=== PATIENT | male | born 1990 | race Caucasian/White ===

== ENCOUNTER 2022-12-04 09:44 | Outpatient (OUT) | payer BC, SELFPAY ==
[2022-12-04 10:14] LABS: Basophils Absolute Auto 0.2 10^3/uL (0.0-0.1); Basophils Percent Auto 2.3 % (0.2-2.0); Eosinophils Absolute Auto 0.7 10^3/uL (0.0-0.7); Hematocrit 46.7 % (42.0-54.0); Immature Granulocytes Abs Auto 0.02 10^3/uL (0.00-0.03); Immature Granulocytes Pct Auto 0.2 % (0.0-0.5); Lymphocytes Absolute Auto 2.9 10^3/uL (1.2-3.8); Lymphocytes Percent Auto 35.2 % (20.5-60.0); Mean Corpuscular HGB Conc 32.1 g/dL (29.9-35.2); Mean Corpuscular Hemoglobin 26.9 pg (25.9-34.0); Mean Corpuscular Volume 83.8 fL (80.0-94.0); Mean Platelet Volume 10.6 fL (9.5-13.5); Monocytes Absolute Auto 0.5 10^3/uL (0.3-0.8); Monocytes Percent Auto 6.2 % (1.7-12.0); Neutrophils Absolute Auto 3.9 10^3/uL (1.4-6.5); Neutrophils Percent Auto 47.1 % (43.0-75.0); Platelet Count 228 10^3/uL (150-450); Red Blood Count 5.57 10^6/uL (4.70-6.10); Red Cell Distribution Width 13.7 % (11.0-15.0); White Blood Count 8.2 10^3/uL (4.0-11.0)
[2022-12-04 10:25] LABS: Estimated Average Glucose 120 mg/dL; Glycohemoglobin A1C 5.8 % (4.5-6.2)
[2022-12-04 10:52] LABS: Alanine Aminotransferase 82 U/L (16-63); Albumin Globulin Ratio 1.1; Albumin Level 3.9 g/dL (3.4-5.0); Alkaline Phosphatase 72 U/L (46-116); Anion Gap 12.5; Aspartate Amino Transferase 31 U/L (15-37); BUN Creatinine Ratio 13.8; Bilirubin Total 0.4 mg/dL (0.2-1.0); Calcium 9.2 mg/dL (8.5-10.1); Carbon Dioxide 27.9 mmol/L (21.0-32.0); Chloride 102 mmol/L (98-107); Chol HDL Ratio 4.9; Cholesterol 209 mg/dL (<=200); Estimated GFR (African America >60 (>=60); Estimated GFR (Non-African Ame >60 (>=60); Free T3 2.98 pg/mL (2.18-3.98); Globulin 3.5 g/dL; Glucose 99 mg/dL (74-106); HDL Cholesterol 43 mg/dL (40-60); Potassium 4.4 mmol/L (3.5-5.1); Sodium 138 mmol/L (136-145); Thyroid Stimulating Hormone 1.324 uIU/mL (0.358-3.740); Total Protein 7.4 g/dL (6.4-8.2); Triglycerides 145 mg/dL (<=150)
[2022-12-05 10:08] LABS: Insulin 10.3 uIU/mL (2.6-24.9)
== END 2022-12-04 09:45 | disposition home or self-care (01) ==
LOC: LAB 09:49
PROVIDERS: PCP Family Medicine; Visit Provider Family Medicine
DX: Z00.00 Encounter for general adult medical examination without abnormal findings (principal)
CPT/HCPCS: 36415; 80053; 80061; 83036; 83525; 84436; 84443; 84481; 85025

== ENCOUNTER 2023-11-06 11:33 | Outpatient (OUT) | payer BC, SELFPAY ==
[2023-11-06 12:12] LABS: Basophils Absolute Auto 0.2 10^3/uL (0.0-0.1); Basophils Percent Auto 2.5 % (0.2-2.0); Eosinophils Absolute Auto 0.5 10^3/uL (0.0-0.7); Eosinophils Percent Auto 6.5 % (0.9-7.0); Hematocrit 47.7 % (42.0-54.0); Hemoglobin 15.8 g/dL (14.0-18.0); Immature Granulocytes Abs Auto 0.02 10^3/uL (0.00-0.03); Immature Granulocytes Pct Auto 0.2 % (0.0-0.5); Lymphocytes Absolute Auto 3.1 10^3/uL (1.2-3.8); Lymphocytes Percent Auto 38.4 % (20.5-60.0); Mean Corpuscular HGB Conc 33.1 g/dL (29.9-35.2); Mean Corpuscular Hemoglobin 27.1 pg (25.9-34.0); Mean Corpuscular Volume 81.8 fL (80.0-94.0); Mean Platelet Volume 10.7 fL (9.5-13.5); Monocytes Absolute Auto 0.6 10^3/uL (0.3-0.8); Monocytes Percent Auto 6.8 % (1.7-12.0); Neutrophils Absolute Auto 3.7 10^3/uL (1.4-6.5); Neutrophils Percent Auto 45.6 % (43.0-75.0); Platelet Count 252 10^3/uL (150-450); Red Blood Count 5.83 10^6/uL (4.70-6.10); Red Cell Distribution Width 13.6 % (11.0-15.0); White Blood Count 8.1 10^3/uL (4.0-11.0)
[2023-11-06 12:26] LABS: Estimated Average Glucose 123 mg/dL; Glycohemoglobin A1C 5.9 % (4.5-6.2)
[2023-11-06 13:04] LABS: Alanine Aminotransferase 87 U/L (16-63); Albumin Globulin Ratio 1.2; Alkaline Phosphatase 68 U/L (46-116); Anion Gap 12.2; Aspartate Amino Transferase 35 U/L (15-37); BUN Creatinine Ratio 12.7; Bilirubin Total 0.5 mg/dL (0.2-1.0); Calcium 9.3 mg/dL (8.5-10.1); Carbon Dioxide 28.1 mmol/L (21.0-32.0); Chloride 103 mmol/L (98-107); Chol HDL Ratio 4.8; Cholesterol 188 mg/dL (<=200); Estimated GFR (African America >60 (>=60); Estimated GFR (Non-African Ame >60 (>=60); Free T3 3.19 pg/mL (2.18-3.98); Globulin 3.3 g/dL; Glucose 106 mg/dL (74-106); HDL Cholesterol 39 mg/dL (40-60); Potassium 4.3 mmol/L (3.5-5.1); Sodium 139 mmol/L (136-145); Thyroid Stimulating Hormone 1.353 uIU/mL (0.358-3.740); Total Protein 7.3 g/dL (6.4-8.2); Triglycerides 230 mg/dL (<=150)
[2023-11-07 09:13] LABS: Insulin 13.9 uIU/mL (2.6-24.9)
== END 2023-11-06 11:34 | disposition home or self-care (01) ==
LOC: LAB 11:34
PROVIDERS: PCP Family Medicine; Visit Provider Family Medicine
DX: Z00.00 Encounter for general adult medical examination without abnormal findings (principal)
CPT/HCPCS: 36415; 80053; 80061; 83036; 83525; 84436; 84443; 84481; 85025

== ENCOUNTER 2024-11-05 13:59 | Outpatient (OUT) | payer BC, SELFPAY ==
--- NOTE | 2024-11-05 14:12 | XR_ITS ---
[facility] [place] [id number] Patient Name: CANDELARIA GOMEZ MRN: [id number] date: 1990 Sex: M Assigned Patient Location: RAD Current Patient Location: [facility] Accession/Order Number: [id number] Exam Date: 11/05/2024 14:15 Report Date: 11/05/2024 15:02 At the request of: SUSHANT MATT MD Procedure: XR cervical spine 2-3V CERVICAL SPINE 3 views: CLINICAL HISTORY: Cervical Radiculopathy COMPARISON: None FINDINGS: Vertebral body and disc space heights appear maintained. Facet joints appear unremarkable. No prevertebral soft tissue swelling. XR/XR cervical spine 2-3V IMPRESSION: NO ACUTE BONY PROCESS. Impression dictated by: Tejas Friend Jr., D.O. 11/05/2024 3:02 PM Dictation Location: [place] [address] Electronically authenticated by: [id number] Y Date: 11/05/2024 15:02
--- OUTSIDE RECORDS SUMMARY | 2024-11-05 14:14 | XMS_ITS | CCD ---
Author Organization [facility] Care Team Providers Care Cant Gang Sawyer Name Role Phone MARY REDDY Consulting Unavailable MARY REDDY Attending Unavailable DR SUSHANT MATT Primary Care Unavailable MARY REDDY Admitting Unavailable MARIVEL THAKKAR Consulting Unavailable MD Sushant Matt Primary Care Provider [phone] Melvin Walker Attending Provider Sushant Matt Primary Care Unavailable Melvin aWlker Attending Unavailable Melvin Walker Admitting Unavailable Problems Problem Classification Problem Date Documented Da te Episodic/Chronic Abdominal pain (4 sources) Left lower quadrant pain; Translations: [LEFT LOWER QUADRANT PAIN] Onset: 2 Episodic Gastrointestinal hemorrhage (1 source) Gastrointestinal hemorrhage, unspecified; Translations: [GASTROINTESTINAL HEMORRHAGE UNS] Onset: 2 Episodic Substance-related disorders (1 source) Nicotine dependence, cigarettes, uncomplicated; Translations: [NICOTINE DEPEND CIGARETTES UNCOMP] Onset: 2 Chronic Unclassified (1 source) Encounter for fertility testing; Translations: [Encounter for fertility testing] Onset: 2 Results Test Name Value Interpretation Reference Range Facility No Panel InformationOrdered By: Melvin Walker on 02-01-2022 Semen Analysis Comment . [facility] Comment on above: No Abnormal specimen characteristics noted. Semen Appearance Normal Normal [facility] Semen pH 8.0 7.2-10 [facility] Semen Round Cell Concentration Moderate [facility] Semen WBC Concentration <1.0 M/mL <0.9 [facility] Sperm % Non-Motile 42 % [facility] Sperm Motility Total 58.0 % >40 [facility] Qualitative semen viscosityO rdered By: Melvin Walker on 02-01-2022 Viscosity Ql (Keira) Normal Normal [facility] Semen Analysis, Fertilityon 12-08-2022 Debris/Round Cells Moderate Normal [facility] Comment on above: Order Comment: Metho d of Collection:: Masturbation Has the patient had a vasectomy?: N Type of Specimen Container:: Sterile Container Abstinence Period:: 5 DAYS Kept at body temperature?: Y Any Collection or Transport Problems?: NO Performed By: #### S EMCOMP #### [facility] [address] [place] [address] [place] Immotile Sperm 42 % Normal [facility] Comment on above: Order Comment: Metho d of Collection:: Masturbation Has the patient had a vasectomy?: N Type of Specimen Container:: Sterile Container Abstinence Period:: 5 DAYS Kept at body temperature?: Y Any Collection or Transport Problems?: NO Performed By: #### S EMCOMP #### [facility] [address] [place] [address] [place] Non-Progression Sperm Motili 20 % Normal [facility] Comment on above: Order Comment: Metho d of Collection:: Masturbation Has the patient had a vasectomy?: N Type of Specimen Container:: Sterile Container Abstinence Period:: 5 DAYS Kept at body temperature?: Y Any Collection or Transport Problems?: NO Performed By: #### S EMCOMP #### [place] [address] [place] Normal Sperm Morphology 6.0 % Normal >=4.0 [facility] Comment on above: Order Comment: Metho d of Collection:: Masturbation Has the patient had a vasectomy?: N Type of Specimen Container:: Sterile Container Abstinence Period:: 5 DAYS Kept at body temperature?: Y Any Collection or Transport Problems?: NO Performed By: #### S EMCOMP #### [facility] [address] [place] [address] [place] Rapid Progression Sperm Motili 38 % Normal [facility] Comment on above: Order Comment: Metho d of Collection:: Masturbation Has the patient had a vasectomy?: N Type of Specimen Container:: Sterile Container Abstinence Period:: 5 DAYS Kept at body temperature?: Y Any Collection or Transport Problems?: NO Performed By: #### S EMCOMP #### [facility] [address] Semen Appearance Normal Normal Normal [facility] Comment on above: Order Comment: Metho d of Collection:: Masturbation Has the patient had a vasectomy?: N Type of Specimen Container:: Sterile Container Abstinence Period:: 5 DAYS Kept at body temperature?: Y Any Collection or Transport Problems?: NO Performed By: #### S EMCOMP #### [facility] [address] [place] [address] Semen Comment . Normal [facility] Comment on above: Order Comment: Metho d of Collection:: Masturbation Has the patient had a vasectomy?: N Type of Specimen Container:: Sterile Container Abstinence Period:: 5 DAYS Kept at body temperature?: Y Any Collection or Transport Problems?: NO Result Comment: No A bnormal specimen characteristics noted. PERFORMED BY: [place] [address] PATHOLOGIST REELING MACHINE OPERATOR SHAWNA DE LA ROSA M.D. Performed By: #### S EMCOMP #### [address] Semen Liquefaction Normal Normal <=60 min [facility] Comment on above: Order Comment: Metho d of Collection:: Masturbation Has the patient had a vasectomy?: N Type of Specimen Container:: Sterile Container Abstinence Period:: 5 DAYS Kept at body temperature?: Y Any Collection or Transport Problems?: NO Performed By: #### S EMCOMP #### [address] Semen pH 8.0 Normal >=7.2 [facility] Comment on above: Order Comment: Metho d of Collection:: Masturbation Has the patient had a vasectomy?: N Type of Specimen Container:: Sterile Container Abstinence Period:: 5 DAYS Kept at body temperature?: Y Any Collection or Transport Problems?: NO Performed By: #### S EMCOMP #### [facility] [address] [place] [address] Semen Viscosity Normal Normal Normal [facility] Comment on above: Order Comment: Metho d of Collection:: Masturbation Has the patient had a vasectomy?: N Type of Specimen Container:: Sterile Container Abstinence Period:: 5 DAYS Kept at body temperature?: Y Any Collection or Transport Problems?: NO Performed By: #### S EMCOMP #### [facility] [address] Semen Volume 3.0 mL Normal >=1.5 [facility] Comment on above: Order Comment: Metho d of Collection:: Masturbation Has the patient had a vasectomy?: N Type of Specimen Container:: Sterile Container Abstinence Period:: 5 DAYS Kept at body temperature?: Y Any Collection or Transport Problems?: NO Performed By: #### S EMCOMP #### [address] Sperm Concentration 14.6 Low >=15 [facility] Comment on above: Order Comment: Metho d of Collection:: Masturbation Has the patient had a vasectomy?: N Type of Specimen Container:: Sterile Container Abstinence Period:: 5 DAYS Kept at body temperature?: Y Any Collection or Transport Problems?: NO Performed By: #### S EMCOMP #### [address] Total Motility ([place]) 58.0 % Normal >=40 ([place]) [facility] Comment on above: Order Comment: Metho d of Collection:: Masturbation Has the patient had a vasectomy?: N Type of Specimen Container:: Sterile Container Abstinence Period:: 5 DAYS Kept at body temperature?: Y Any Collection or Transport Problems?: NO Performed By: #### S EMCOMP #### [facility] [address] [place] [address] [place] WBC Concent, Semen <1.0 Normal <1.0 [facility] Comment on above: Order Comment: Metho d of Collection:: Masturbation Has the patient had a vasectomy?: N Type of Specimen Container:: Sterile Container Abstinence Period:: 5 DAYS Kept at body temperature?: Y Any Collection or Transport Problems?: NO Performed By: #### S EMCOMP #### [facility] [address] Semen liquefaction time maria esther urementOrdered By: Melvin Walker on 02-01-2022 Liquefaction (Keira) [Time] Normal <=60 min [facility] Semen volumeOrdered By: Ratna Walker on 02-01-2022 Specimen volume (Keira) 3.0 mL >1.5 [facility] Sperm countOrdered By: Melvin Walker on 02-01-2022 Spermatozoa (Keira) [#/Vol] 14.6 M/mL >15 [facility] Sperm morphologyOrdered By: Melvin Walker on 02-01-2022 Spermatozoa Nom (Keira) 6.0 % >4.0 [facility] CT ABD/PELV W CONon 09-17-19 CT ABD/PELV W CON EXAM: CT ABD/PELV W CON 09/15/2021 8:45 PM EDT OH001 CLINICAL STATEMENT: UNSPECIFIED ABDOMINAL PAIN COMPARISON: No prior studies are available at the time of dictation. TECHNIQUE: Helically acquired images were obtained of the abdomen and pelvis following 100 cc of Omnipaque 300 IV contrast. Oral contrast was administered. AEC is utilized. 2-D reconstructed images are provided. FINDINGS: Contracted gallbladder. The upper abdominal solid organs are unremarkable. There is no bowel obstruction or free air. There is no ascites. There is no evidence of aortic aneurysm or dissection. The celiac artery, superior mesenteric artery, and superior mesenteric vein are grossly patent. There is no retroperitoneal adenopathy. There is no appendicitis or diverticulitis. There are no pelvic masses or loculated fluid collections. The lung bases are clear. There are no destructive bone lesions identified. IMPRESSION: No acute abnormality. FOLLOW-UP: Follow-up as clinically indicated. Electronically authenticated by: MARIVEL SAID Date: 2021-09-15 23:36 Normal [facility] CBC AUTO DIFFon 09-15-2021 BASO # 0.2 103/ul Critically high 0.0-0.1 [facility] Comment on above: Performed By: #### C BC #### [facility] [address] [address] [address] Tye Agosto Basophils/100 WBC (Bld) 1.9 % Normal 0.2-2.0 [facility] Comment on above: Performed By: #### C BC #### [facility] [address] [place] [address] Dr. Tye Agosto EO # 0.6 103/ul Normal 0.0-0.7 [facility] Comment on above: Performed By: #### C BC #### [facility] [address] [place] [address] Dr. Tye Agosto Eosinophils/100 WBC (Bld) 6.2 % Normal 0.9-7.0 [facility] Comment on above: Performed By: #### C BC #### [facility] [address] [place] [address] Dr. Tye Agosto Erythrocyte distribution width (RBC) [Ratio] 13.2 % Normal 11.0-15.0 [facility] Comment on above: Performed By: #### C BC #### [facility] [address] [place] [address] Dr. Tye Agosto Hematocrit (Bld) [Volume fraction] 44.7 % Normal 42.0-54.0 [facility] Comment on above: Performed By: #### C BC #### [facility] [address] [place] [address] Dr. Tye Agosto Hemoglobin (Bld) [Mass/Vol] 14.8 g/dL Normal 14.0-18.0 [facility] Comment on above: Performed By: #### C BC #### [facility] [address] [place] [address] Dr. Tye Agosto IG # 0.03 10e3/ul Normal 0.00-0.03 [facility] Comment on above: Performed By: #### C BC #### [facility] [address] [place] [address] Dr. Tye Agosto IG % 0.3 % Normal 0.0-0.5 [facility] Comment on above: Performed By: #### C BC #### [facility] [address] [place] [address] Dr. Tye Agosto LYMPH # 3.4 103/ul Normal 1.2-3.8 [facility] Comment on above: Performed By: #### C BC #### [facility] [address] [place] [address] Dr. Tye Agosto Lymphocytes/100 WBC (Bld) 33.5 % Normal 20.5-60.0 [facility] Comment on above: Performed By: #### C BC #### [facility] [address] [place] [address] Dr. Tye Agosto MANUAL DIFF REQ NO Normal [facility] Comment on above: Performed By: #### C BC #### [facility] [address] [place] [address] Dr. Tye Agosto MCH (RBC) [Entitic mass] 27.0 pg Normal 25.9-34.0 [facility] Comment on above: Performed By: #### C BC #### [facility] [address] [place] [address] Dr. Tye Agosto MCHC (RBC) [Mass/Vol] 33.1 g/dL Normal 29.9-35.2 [facility] Comment on above: Performed By: #### C BC #### [facility] [address] [place] [address] Dr. Tye Agosto MCV (RBC) [Entitic vol] 81.4 fL Normal 80.0-94.0 [facility] Comment on above: Performed By: #### C BC #### [facility] [address] [place] [address] Dr. Tye Agosto MONO # 0.6 103/ul Normal 0.3-0.8 [facility] Comment on above: Performed By: #### C BC #### [facility] [address] [place] [address] Dr. Tye Agosto Monocytes/100 WBC (Bld) 5.5 % Normal 1.7-12.0 [facility] Comment on above: Performed By: #### C BC #### [facility] [address] [place] [address] Dr. Tye Agosto NEUT # 5.4 103/ul Normal 1.4-6.5 [facility] Comment on above: Performed By: #### C BC #### [facility] [address] [address] [address] Tye Agosto Neutrophils/100 WBC (Bld) 52.6 % Normal 43.0-75.0 [facility] Comment on above: Performed By: #### C BC #### [facility] [address] [address] [address] Tye Agosto Platelet mean volume (Bld) [Entitic vol] 10.5 fL Normal 9.5-13.5 [facility] Comment on above: Performed By: #### C BC #### [facility] [address] [address] [address] Tye Agosto PLT 233 103/ul Normal 150-450 [facility] Comment on above: Performed By: #### C BC #### [facility] [address] [place] [address] Dr. Tye Agosto RBC 5.49 106/ul Normal 4.70-6.10 [facility] Comment on above: Performed By: #### C BC #### [facility] [address] [place] [address] Dr. Tye Agosto WBC 10.2 103/ul Normal 4.0-11.0 [facility] Comment on above: Performed By: #### C BC #### [facility] [address] [place] [address] Dr. Tye Agosto PROF CHEM 8 (BAS METB)on Anion gap [Moles/Vol] 11.4 mmol/L Normal [facility] Comment on above: Performed By: #### B MP #### [facility] [address] [place] [address] Dr. Tye Agosto Calcium [Mass/Vol] 9.3 mg/dL Normal 8.5-10.1 [facility] Comment on above: Performed By: #### B MP #### [facility] [address] [place] [address] Dr. Tye Agosto Chloride [Moles/Vol] 103 mmol/L Normal 98-107 [facility] Comment on above: Performed By: #### B MP #### [facility] [address] [address] [address] Tye Agosto CO2 [Moles/Vol] 27.1 mmol/L Normal 21.0-32.0 [facility] Comment on above: Performed By: #### B MP #### [facility] [address] [address] [address] Tye Agosto Creatinine [Mass/Vol] 1.25 mg/dL Normal 0.70-1.30 [facility] Comment on above: Performed By: #### B MP #### [facility] [address] [address] [address] Tye Agosto EGFR-AF SYRIAN >60 Normal >=60 [facility] Comment on above: Performed By: #### B MP #### [facility] [address] [place] [address] Dr. Tye Agosto EGFR-NON AF SYRIAN >60 Normal >=60 [facility] Comment on above: Performed By: #### B MP #### [facility] [address] [address] [address] Tye Agosto Glucose [Mass/Vol] 117 mg/dL Critically high 74-106 [facility] Comment on above: Performed By: #### B MP #### [facility] [address] [address] [address] Tye Agosto Potassium [Moles/Vol] 3.5 mmol/L Normal 3.5-5.1 [facility] Comment on above: Performed By: #### B MP #### [facility] [address] [address] [address] Tye Agosto Sodium [Moles/Vol] 138 mmol/L Normal 136-145 [facility] Comment on above: Performed By: #### B MP #### [facility] [address] [place] [address] Dr. Tye Agosto Urea nitrogen [Mass/Vol] 12.0 mg/dL Normal 7.0-18.0 [facility] Comment on above: Performed By: #### B MP #### [facility] [address] [place] [address] Dr. Tye Agosto Urea nitrogen/Creatinine [Mass ratio] 9.6 mg/mg Normal [facility] Comment on above: Performed By: #### B #### [facility] [address] [place], [place] [address] Dr. Tye Agosto Consent Formson 12-09-2020 Consent Forms [id number] #1.00OTGTIFF Normal [facility] Lab - Toxicology Resultson 1 Lab - Toxicology Results [id number] #1.00OTGTIFF [facility] Triage Panel 10on 12-02-2020 Drug Screen Complete Collected Normal [facility] Comment on above: Performed By: #### 2 [id number] #### [facility] (DEFAULT) [address] [place] [address] ED Clinical Summaryon 2020 ED Clinical Summary [facility] ? Urgent Care [address] [place], [place] [id number] Clinical Summary PERSON INFORMATION Name: CANDELARIA SOLIS Age: 30 Years Sex: MALE : 1990 MRN: Acct#: Visit Reason: Medical screening exam; [facility] Arrival: 12/01/2020 14:25:19 Discharge: 12/01/2020 14:58:00 LOS: 000 00:33 Check In: 12/01/2020 14:25:19 Checkout: 12/01/2020 14:58:00 Address: [address] [place] [address] PCP: SUSHANT MATT PROVIDER INFORMATION Provider Role Assigned Unassigned Juan Amador PA-C ED PA 12/01/2020 14:29:42 12/01/2020 14:30:19 Kurt Doll PA-C ED PA 12/01/2020 14:29:53 Janell Crowley ANIMAL NUTRITION CONSULTANT Nurse 12/01/2020 14:33:53 VITALS INFORMATION Vital Sign Triage Latest Temperature Tympanic Temperature Temporal Artery Pulse Rate O2 Sat 96 % 96 % Respiratory Rate Blood Pressure /86 mmHg /86 mmHg MEDICAL INFORMATION Medications Given: Allergy Information: No Known Medication Allergies PHYSICIAN DOCUMENTATION DISCHARGE INFORMATION: Discharge Disposition: Home Discharge Location: Home PATIENT EDUCATION INFORMATION Instructions: Follow-Up: DIAGNOSIS: Patient Understands: Yes - Patient/family/careg iver verbalizes understanding of instructions given Comment: Normal [facility] ED Patient Summaryon 021 ED Patient Summary [facility] ? Urgent Care [address] [place] [address] PATIENT DISCHARGE INSTRUCTIONS Patient Information Name: CANDELARIA SOLIS Age: 30 Years Date of : 1990 Reason For Visit: Medical screening exam; [facility] Arrival Time: 12/01/2020 14:25:19 Primary Care Physician: SUSHANT MATT Attending Physician: Kurt Doll PA-C Comment: Patient Education Medication Information: The exam and treatment you received today in the [facility] Emergency Department were for an urgent problem and are not intended as complete care. It is important for you to follow up with a doctor, nurse practitioner, or physician?s hospital administrative assistant for ongoing care. If your symptoms become worse or you do not improve as expected and you are unable to reach your usual health care provider, you should return to the Emergency Department, we are available 24 hours a day. For those patients who have received Radiology results, the interpretation of your X-ray as given to you by our Emergency Department physician is only a preliminary report. The Radiologist will review your films and if there is a change in the diagnosis you will be notified by phone. Please make sure you have provided a working phone number so we can reach you if necessary. In the event that you had a lab culture while you were a patient in the Emergency Department, you will be notified by phone if there is a need to change your antibiotic. Please make sure you have provided a working phone number so we can reach you if necessary. [facility] Emergency Department has provided you with a complete list of medications post discharge. Please inform your swing manager/provider of your visit and for further instruction on these medications. Any specific questions regarding your chronic medications and dosages should be discussed with your primary care physician(s) and/or pharmacist. Visit Information Visit Diagnosis: Diagnoses This Visit Medical screening exam ([id number]) If you received any narcotics, sedation, or any other medication that causes drowsiness for the next 24 hours, unless otherwise directed: ? Do not drive a car. ? Do not operate machinery such as power tools, lawn mowers, drills, sewing machines, or stoves ? Avoid alcoholic beverages and drugs for allergies, nerves, or sleep ? Do not make important personal or business decisions or sign any legal documents Reason for Visit: [employer] new hire physical Allergies: Substance Reaction Symptoms Type Comments No Known Medication Allergies Drug Vital Signs: Vitals and Measurements this Visit (last charted value for your 12/01/2020 visit) Vital Signs This Visit Temperature Oral: 37 DegC Peripheral Pulse Rate: 72 bpm Respiratory Rate: 16 br/min Systolic Blood Pressure: 124 mmHg Diastolic Blood Pressure: 86 mmHg SpO2: 96 % Oxygen Therapy: Room air Measurements This Visit Height: 175.26 cm Weight: 96.80 kg Body Mass Index: 31.51 kg/m2 Problems List: Problem Onset Comments No Problems found Major Tests and Procedures: The following procedures and tests were performed during your ED visit. Laboratory Radiology Cardiology Viruses or Bacteria What?s got you sick? Antibiotics only treat bacterial infections. Viral illnesses cannot be treated with antibiotics. When an antibiotic is not prescribed, ask your healthcare professional for tips on how to relieve symptoms and feel better. Usual Cause Illness Viruses Bacteria Antibiotic Needed Cold/Runny Nose NO Bronchitis/Chest Cold (in otherwise healthy children and adults) NO Whooping Cough Yes Flu NO Strep Throat Yes Sore Throat (except strep) NO Fluid in the middle ear (otitis media with effusion) NO Urinary Tract Infection Yes Antibiotics Aren?t Always the Answer www.cdc.gov/getsmart GET SMART Know When Antibiotics Work [place] Department of Health and Human Services Centers for Disease Control and Prevention October 2013 [facility] Urgent Care Note- Provideron 12-01-2020 Urgent Care Note- Provider Patient: CANDELARIA SOLIS Age: 30 years Sex: MALE : 1990 Associated Diagnoses: None Author: Kurt Doll PA-C History of Present Illness Patient presents for a pre-employment physical. He is cleared for work. Exam is normal. See scanned document. Health Status Allergies: No active allergies have been recorded.. Past Medical/ Family/ Social History Medical history: No active or resolved past medical history items have been selected or recorded.. Surgical history: No active procedure history items have been selected or recorded.. Family history: No family history items have been selected or recorded.. Social history: Social & Psychosocial Habits No Data Available . Problem list: No qualifying data available . Normal [facility] [address] 021 Urgent Care Record [facility] ? Urgent Care [address] [place] [address] PATIENT DISCHARGE INSTRUCTIONS Patient Information Name: CANDELARIA SOLIS Age: 30 Years Date of : 1990 Reason For Visit: Medical screening exam; [employer] PHYSICAL Arrival Time: 12/01/2020 14:25:19 Primary Care Physician: SUSHANT MATT Attending Physician: Kurt Doll PA-C Comment: Visit Diagnosis: Diagnoses This Visit Medical screening exam ([id number]) If you received any narcotics, sedation, or any other medication that causes drowsiness for the next 24 hours, unless otherwise directed: ? Do not drive a car. ? Do not operate machinery such as power tools, lawn mowers, drills, sewing machines, or stoves ? Avoid alcoholic beverages and drugs for allergies, nerves, or sleep ? Do not make important personal or business decisions or sign any legal documents Medication Information: The exam and treatment you received today in the [facility] Care were for an urgent problem and are not intended as complete care. It is important for you to follow up with a doctor, nurse practitioner, or physician?s hospital administrative assistant for ongoing care. If your symptoms become worse or you do not improve as expected and you are unable to reach your usual health care provider, you should return to the Emergency Department, we are available 24 hours a day. For those patients who have received Radiology results, the interpretation of your X-ray as given to you by our Urgent Care physician is only a preliminary report. The Radiologist will review your films and if there is a change in the diagnosis you will be notified by phone. Please make sure you have provided a working phone number so we can reach you if necessary. In the event that you had a lab culture while you were a patient in the Urgent Care, you will be notified by phone if there is a need to change your antibiotic. Please make sure you have provided a working phone number so we can reach you if necessary. [facility] has provided you with a complete list of medications post discharge. Please inform your swing manager/provider of your visit and for further instruction on these medications. Any specific questions regarding your chronic medications and dosages should be discussed with your primary care physician(s) and/or pharmacist. Visit Information Allergies: Substance Reaction Symptoms Type Comments No Known Medication Allergies Drug Vital Signs: Vitals and Measurements this Visit (last charted value for your 12/01/2020 visit) Vital Signs This Visit Temperature Oral: 37 DegC Peripheral Pulse Rate: 72 bpm Respiratory Rate: 16 br/min Systolic Blood Pressure: 124 mmHg Diastolic Blood Pressure: 86 mmHg SpO2: 96 % Oxygen Therapy: Room air Measurements This Visit Height: 175.26 cm Weight: 96.80 kg Body Mass Index: 31.51 kg/m2 Problems List: Problem Onset Comments No Problems found Patient Education Viruses or Bacteria What?s got you sick? Antibiotics only treat bacterial infections. Viral illnesses cannot be treated with antibiotics. When an antibiotic is not prescribed, ask your healthcare professional for tips on how to relieve symptoms and feel better. Usual Cause Illness Viruses Bacteria Antibiotic Needed Cold/Runny Nose NO Bronchitis/Chest Cold (in otherwise healthy children and adults) NO Whooping Cough Yes Flu NO Strep Throat Yes Sore Throat (except strep) NO Fluid in the middle ear (otitis media with effusion) NO Urinary Tract Infection Yes Antibiotics Aren?t Always the Answer www.cdc.gov/getsmart GET SMART Know When Antibiotics Work [place] Department of Health and Human Services Centers for Disease Control and Prevention October 2013 Normal [facility] Encounters Encounter Date Encounter Type Care Provider Facility Start: 02-01-2022 End: 02-01-2022 ambulatory Sushant Matt Facility:[facility] [place] Start: 02-01-2022 End: 02-01-2022 ambulatory MD Sushant Matt Work Phone: [facility] Work Phone: Start: 02-01-2022 End: 02-01-2022 Patient encounter procedure MD Sushant Matt Work Phone: [facility] [place] Start: 09-15-2021 End: 09-16-2021 ambulatory MARY REDDY Facility:[facility] Payers Date Payer Category Payer Self-pay 1990 Unknown [id number] 1960 Unknown [id number] Unknown [id number] Social History Date Type Detail Facility Tobacco smoking stat [facility] Unknown if ever smoked [facility] Work Phone: Start: 1990 Sex Assigned At Male F [facility] Clinical Note 02-01-2022 Note Date & Type Note Facility 02-01-2022 Note [facility] Sperm Rapid Progressive February 01, 2022 10:11am 38 % Clinical Note 02-01-2022 Note Date & Type Note Facility 02-01-2022 Note [facility] [place] Sperm Non-Progressive February 01, 2022 10:11am 20 % History and physical note 12-09-2020 Note Date & Type Note Facility 12-09-2020 Note [id number] [facility] Clinical Note 12-01-2020 Note Date & Type Note Facility 12-01-2020 Note Patient Education Materials Foll ows: [facility] Evaluation note Note Date & Type Note Facility Evaluation note No assessment information availa ble [facility] Work Phone: Summary Purpose Family History No Family History Records FoundNo Family History Records FoundNo Family History Records Found Advance Directives No Advanced Directives Records Found Advance Directive Response Recorded Date/ Time Advance Directives No December 07, 2021 2:43pm Chief Complaint and Reason for Visit Chief Complaint Fertility Additional Source Comments (unrecognized sect ion and content) No Status Records FoundNo Status Records FoundNo Status Records Found INFORMATION SOURCE (unrecogn ized section and content) DATE CREATED AUTHOR 12/10/2020 [facility] DATE CREATED AUTHOR AUTHOR'S ORGANIZ ATION 09/22/2021 [facility] DATE CREATED AUTHOR AUTHOR'S ORGANIZ ATION 02/17/2022 [facility] Care Teams (unrecognized sec tion and content) Team Status: Inactive Member Role Status Dates Sushant Matt MD Primary Care Provider Active Melvin Walker Attending Provider Active Team Status: Active Member Role Status Dates Sushant Matt MD Primary Care Provider Active Goals (unrecognized section and content) Goals may be documented in a n alternate section FOR RECORDS PERTAINING TO PATIENTS WHO ARE OR HAVE BEEN ENROLLED IN A CHEMICAL DEPENDENCY/SUBSTANCEABUSE PROGRAM, SOME INFORMATION MAY BE OMITTED. This clinical summary was aggregated from multiple sources. Caution should be exercised in using it in the provision of clinical care. This summary normalizes information from multiple sources, and as a consequence, information in this document may materially change the coding, format and clinical context of patient data. In addition, data may be omitted in some cases. CLINICAL DECISIONS SHOULD BE BASED ON THE PRIMARY CLINICAL RECORDS. [facility] [place]. [email or web address] [facility]. provides no warranty or guarantee of the accuracy or completeness of information in this document.
== END 2024-11-05 14:00 | disposition home or self-care (01) ==
LOC: RAD 14:01
PROVIDERS: PCP Family Medicine; Visit Provider Family Medicine
DX: M54.12 Radiculopathy, cervical region (principal)
CPT/HCPCS: 72040

== ENCOUNTER 2024-11-07 06:50 | Outpatient (OUT) | payer BC, SELFPAY ==
--- OUTSIDE RECORDS SUMMARY | 2024-11-07 06:53 | XMS_ITS | CCD ---
Author Organization [facility] Care Team Providers Care Marine Painter Name Role Phone MARY REDDY Consulting Unavailable MARY REDDY Attending Unavailable DR SUSHANT MATT Primary Care Unavailable MARY REDDY Admitting Unavailable MARIVEL THAKKAR Consulting Unavailable MD Sushant Matt Primary Care Provider Melvin Walker Attending Provider Sushant Matt Primary Care Unavailable Melvin Walker Attending Unavailable Melvin Walker Admitting Unavailable Problems [...] Walker on 02-01-2022 Semen Analysis Comment . [facility] Comment on above: No Abnormal specimen characteristics noted. Semen Appearance Normal Normal [facility] Semen pH 8.0 7.2-10 Semen Round Cell Concentration Moderate Semen WBC Concentration <1.0 M/mL <0.9 F [facility] Sperm % Non-Motile 42 % [facility] Sperm Motility Total 58.0 % >40 [facility] Qualitative semen viscosityO rdered By: Melvin Walker on 02-01-2022 Viscosity Ql (Keira) Normal Normal [facility] Semen Analysis, Fertilityon 12-08-2022 Debris/Round Cells Moderate Normal [facility] Comment on above: Order Comment: Metho d of Collection:: Masturbation Has the patient had a vasectomy?: N Type of Specimen Container:: Sterile Container Abstinence Period:: 5 DAYS Kept at body temperature?: Y Any Collection or Transport Problems?: NO Performed By: #### S EMCOMP #### [facility] [address] [place] [address] [place] Immotile Sperm 42 % Normal Comment on above: Order Comment: Metho d of Collection:: Masturbation Has the patient had a vasectomy?: N Type of Specimen Container:: Sterile Container Abstinence Period:: 5 DAYS Kept at body temperature?: Y Any Collection or Transport Problems?: NO Performed By: #### S EMCOMP #### [facility] [address] [place] [address] [place] Non-Progression Sperm Motili 20 % Normal Comment on above: Order Comment: Metho d of Collection:: Masturbation Has the patient had a vasectomy?: N Type of Specimen Container:: Sterile Container Abstinence Period:: 5 DAYS Kept at body temperature?: Y Any Collection or Transport Problems?: NO Performed By: #### S EMCOMP #### [place] [address] [place] Normal Sperm Morphology 6.0 % Normal >=4.0 F [facility] Comment on above: Order Comment: Metho d of Collection:: Masturbation Has the patient had a vasectomy?: N Type of Specimen Container:: Sterile Container Abstinence Period:: 5 DAYS Kept at body temperature?: Y Any Collection or Transport Problems?: NO Performed By: #### S EMCOMP #### [facility] [address] [place] [address] [place] Rapid Progression Sperm Motili 38 % Normal Comment on above: Order Comment: Metho d of Collection:: Masturbation Has the patient had a vasectomy?: N Type of Specimen Container:: Sterile Container Abstinence Period:: 5 DAYS Kept at body temperature?: Y Any Collection or Transport Problems?: NO Performed By: #### S EMCOMP #### [facility] [address] Semen Appearance Normal Normal Normal [facility] Comment on above: Order Comment: Metho d of Collection:: Masturbation Has the patient had a vasectomy?: N Type of Specimen Container:: Sterile Container Abstinence Period:: 5 DAYS Kept at body temperature?: Y Any Collection or Transport Problems?: NO Performed By: #### S EMCOMP #### [facility] [address] [place] [address] Semen Comment . Normal Comment on above: Order Comment: Metho d of Collection:: Masturbation Has the patient had a vasectomy?: N Type of Specimen Container:: Sterile Container Abstinence Period:: 5 DAYS Kept at body temperature?: Y Any Collection or Transport Problems?: NO Result Comment: No A bnormal specimen characteristics noted. PERFORMED BY: [place] [address] PATHOLOGIST ACT TUTOR SHAWNA DE LA ROSA M.D. Performed By: #### S EMCOMP #### [address] Semen Liquefaction Normal Normal <=60 min [facility] Comment on above: Order Comment: Metho d of Collection:: Masturbation Has the patient had a vasectomy?: N Type of Specimen Container:: Sterile Container Abstinence Period:: 5 DAYS Kept at body temperature?: Y Any Collection or Transport Problems?: NO Performed By: #### S EMCOMP #### [address] Semen pH 8.0 Normal >=7.2 Comment on above: Order Comment: Metho d of Collection:: Masturbation Has the patient had a vasectomy?: N Type of Specimen Container:: Sterile Container Abstinence Period:: 5 DAYS Kept at body temperature?: Y Any Collection or Transport Problems?: NO Performed By: #### S EMCOMP #### [facility] [address] [place] [address] Semen Viscosity Normal Normal Normal Comment on above: Order Comment: Metho d of Collection:: Masturbation Has the patient had a vasectomy?: N Type of Specimen Container:: Sterile Container Abstinence Period:: 5 DAYS Kept at body temperature?: Y Any Collection or Transport Problems?: NO Performed By: #### S EMCOMP #### [facility] [address] Semen Volume 3.0 mL Normal >=1.5 Comment on above: Order Comment: Metho d of Collection:: Masturbation Has the patient had a vasectomy?: N Type of Specimen Container:: Sterile Container Abstinence Period:: 5 DAYS Kept at body temperature?: Y Any Collection or Transport Problems?: NO Performed By: #### S EMCOMP #### [address] Sperm Concentration 14.6 Low >=15 [facility] Comment on above: Order Comment: Metho d of Collection:: Masturbation Has the patient had a vasectomy?: N Type of Specimen Container:: Sterile Container Abstinence Period:: 5 DAYS Kept at body temperature?: Y Any Collection or Transport Problems?: NO Performed By: #### S EMCOMP #### [address] Total Motility (OK+COMMODITY SUPERVISOR) 58.0 % Normal >=40 (OK+COMMODITY SUPERVISOR) Comment on above: Order Comment: Metho d of Collection:: Masturbation Has the patient had a vasectomy?: N Type of Specimen Container:: Sterile Container Abstinence Period:: 5 DAYS Kept at body temperature?: Y Any Collection or Transport Problems?: NO Performed By: #### S EMCOMP #### [facility] [address] [place] [address] [place] WBC Concent, Semen <1.0 Normal <1.0 [facility] Comment on above: Order Comment: Metho d of Collection:: Masturbation Has the patient had a vasectomy?: N Type of Specimen Container:: Sterile Container Abstinence Period:: 5 DAYS Kept at body temperature?: Y Any Collection or Transport Problems?: NO Performed By: #### S EMCOMP #### [facility] [address] Semen liquefaction time maria esther urementOrdered By: Melvin Walker on 02-01-2022 Liquefaction (Keira) [Time] Normal <=60 min Semen volumeOrdered By: Ratna Walker on 02-01-2022 Specimen volume (Keira) 3.0 mL >1.5 [facility] Sperm countOrdered By: Melvin Walker on 02-01-2022 Spermatozoa (Keira) [#/Vol] 14.6 M/mL >15 Sperm morphologyOrdered By: Melvin Walker on 02-01-2022 Spermatozoa Nom (Keira) 6.0 % >4.0 [facility] CT ABD/PELV W CONon 09-17-19 [...] MARIVEL SAID Date: 2021-09-15 23:36 Normal [facility] CBC AUTO DIFFon 09-15-2021 BASO # 0.2 103/ul Critically high 0.0-0.1 [facility] Comment on above: Performed By: #### C BC #### [facility] [address] [address] [address] Tye Agosto Basophils/100 WBC (Bld) 1.9 % Normal 0.2-2.0 [facility] Comment on above: Performed By: #### C BC #### [facility] [address] [place] [address] Dr. Tye Agosto EO # 0.6 103/ul Normal 0.0-0.7 [facility] Comment on above: Performed By: #### C BC #### [facility] [address] [place] [address] Dr. Tye Agosto Eosinophils/100 WBC (Bld) 6.2 % Normal 0.9-7.0 [facility] Comment on above: Performed By: #### C BC #### [facility] [address] [place] [address] Dr. Tye Agosto Erythrocyte distribution width (RBC) [Ratio] 13.2 % Normal 11.0-15.0 [facility] Comment on above: Performed By: #### C BC #### [facility] [address] [place] [address] Dr. Tye Agosto Hematocrit (Bld) [Volume fraction] 44.7 % Normal 42.0-54.0 [facility] Comment on above: Performed By: #### C BC #### [facility] [address] [place] [address] Dr. Tye Agosto Hemoglobin (Bld) [Mass/Vol] 14.8 g/dL Normal 14.0-18.0 [facility] Comment on above: Performed By: #### C BC #### [facility] [address] [place] [address] Dr. Tye Agosto IG # 0.03 10e3/ul Normal 0.00-0.03 [facility] Comment on above: Performed By: #### C BC #### [facility] [address] [place] [address] Dr. Tye Agosto IG % 0.3 % Normal 0.0-0.5 [facility] Comment on above: Performed By: #### C BC #### [facility] [address] [place] [address] Dr. Tye Agosto LYMPH # 3.4 103/ul Normal 1.2-3.8 [facility] Comment on above: Performed By: #### C BC #### [facility] [address] [place] [address] Dr. Tye Agosto Lymphocytes/100 WBC (Bld) 33.5 % Normal 20.5-60.0 [facility] Comment on above: Performed By: #### C BC #### [facility] [address] [place] [address] Dr. Tye Agosto MANUAL DIFF REQ NO Normal [facility] Comment on above: Performed By: #### C BC #### [facility] [address] [place] [address] Dr. Tye Agosto MCH (RBC) [Entitic mass] 27.0 pg Normal 25.9-34.0 [facility] Comment on above: Performed By: #### C BC #### [facility] [address] [place] [address] Dr. Tye Agosto MCHC (RBC) [Mass/Vol] 33.1 g/dL Normal 29.9-35.2 [facility] Comment on above: Performed By: #### C BC #### [facility] [address] [place] [address] Dr. Tye Agosto MCV (RBC) [Entitic vol] 81.4 fL Normal 80.0-94.0 [facility] Comment on above: Performed By: #### C BC #### [facility] [address] [place] [address] Dr. Tye Agosto MONO # 0.6 103/ul Normal 0.3-0.8 [facility] Comment on above: Performed By: #### C BC #### [facility] [address] [place] [address] Dr. Tye Agosto Monocytes/100 WBC (Bld) 5.5 % Normal 1.7-12.0 [facility] Comment on above: Performed By: #### C BC #### [facility] [address] [place] [address] Dr. Tye Agosto NEUT # 5.4 103/ul Normal 1.4-6.5 [facility] Comment on above: Performed By: #### C BC #### [facility] [address] [address] [address] Tye Agosto Neutrophils/100 WBC (Bld) 52.6 % Normal 43.0-75.0 [facility] Comment on above: Performed By: #### C BC #### [facility] [address] [address] [address] Tye Agosto Platelet mean volume (Bld) [Entitic vol] 10.5 fL Normal 9.5-13.5 [facility] Comment on above: Performed By: #### C BC #### [facility] [address] [address] [address] Tye Agosto PLT 233 103/ul Normal 150-450 [facility] Comment on above: Performed By: #### C BC #### [facility] [address] [place] [address] Dr. Tye Agosto RBC 5.49 106/ul Normal 4.70-6.10 [facility] Comment on above: Performed By: #### C BC #### [facility] [address] [place] [address] Dr. Tye Agosto WBC 10.2 103/ul Normal 4.0-11.0 [facility] Comment on above: Performed By: #### C BC #### [facility] [address] [place] [address] Dr. Tye Agosto PROF CHEM 8 (BAS METB)on Anion gap [Moles/Vol] 11.4 mmol/L Normal [facility] Comment on above: Performed By: #### B MP #### [facility] [address] [place] [address] Dr. Tye Agosto Calcium [Mass/Vol] 9.3 mg/dL Normal 8.5-10.1 [facility] Comment on above: Performed By: #### B MP #### [facility] [address] [place] [address] Dr. Tye Agosto Chloride [Moles/Vol] 103 mmol/L Normal 98-107 [facility] Comment on above: Performed By: #### B MP #### [facility] [address] [address] [address] Tye Agosto CO2 [Moles/Vol] 27.1 mmol/L Normal 21.0-32.0 [facility] Comment on above: Performed By: #### B MP #### [facility] [address] [address] [address] Tye Agosto Creatinine [Mass/Vol] 1.25 mg/dL Normal 0.70-1.30 [facility] Comment on above: Performed By: #### B MP #### [facility] [address] [address] [address] Tye Agosto EGFR-AF ITALIAN >60 Normal >=60 [facility] Comment on above: Performed By: #### B MP #### [facility] [address] [place] [address] Dr. Tye Agosto EGFR-NON AF ITALIAN >60 Normal >=60 [facility] Comment on above: Performed By: #### B MP #### [facility] [address] [address] [address] Tye Agosto Glucose [Mass/Vol] 117 mg/dL Critically high 74-106 T [facility] Comment on above: Performed By: #### B MP #### [facility] [address] [address] [address] Tye Agosto Potassium [Moles/Vol] 3.5 mmol/L Normal 3.5-5.1 [facility] Comment on above: Performed By: #### B MP #### [facility] [address] [address] [address] Tye Agosto Sodium [Moles/Vol] 138 mmol/L Normal 136-145 [facility] Comment on above: Performed By: #### B MP #### [facility] [address] [place] [address] Dr. Tye Agosto Urea nitrogen [Mass/Vol] 12.0 mg/dL Normal 7.0-18.0 [facility] Comment on above: Performed By: #### B MP #### [facility] [address] [place] [address] Dr. Tye Agosto Urea nitrogen/Creatinine [Mass ratio] 9.6 mg/mg Normal [facility] Comment on above: Performed By: #### B #### [facility] [address] [place], [place] [address] Dr. Tye Agosto Consent Formson 12-09-2020 Consent Forms [id number] #[id number] Normal [facility] Lab - Toxicology Resultson 1 Lab - Toxicology Results [id number] #1.00OTGTIFF [facility] Triage Panel 10on 12-02-2020 Drug Screen Complete Collected Normal [facility] Comment on above: Performed By: #### 2 [id number] #### [facility] (DEFAULT) [address] [place] [address] ED Clinical Summaryon 2020 ED Clinical Summary [facility] ? Urgent Care [address] [place], [place] [id number] Clinical Summary PERSON INFORMATION Name: CANDELARIA SOLIS Age: 30 Years Sex: MALE : 1990 MRN: Acct#: Visit Reason: Medical screening exam; [facility] Arrival: 12/01/2020 14:25:19 Discharge: 12/01/2020 14:58:00 LOS: 000 00:33 Check In: 12/01/2020 14:25:19 Checkout: 12/01/2020 14:58:00 Address: [address] [place] [address] PCP: SUSHANT MATT PROVIDER INFORMATION Provider Role Assigned Unassigned Juan Amador PA-C ED PA 12/01/2020 14:29:42 12/01/2020 14:30:19 Kurt Doll PA-C ED PA 12/01/2020 14:29:53 Janell Crowley SALES AND CATERING COORDINATOR Nurse 12/01/2020 14:33:53 VITALS INFORMATION Vital Sign [...] verbalizes understanding of instructions given Comment: Normal [facility] ED Patient Summaryon 021 ED Patient Summary [facility] ? Urgent Care [address] [place] [address] PATIENT DISCHARGE INSTRUCTIONS Patient Information Name: CANDELARIA SOLIS Age: 30 Years Date of : 1990 Reason For Visit: [facility] Ar[facility] Time: 12/01/2020 14:25:19 Primary Care Physician: SUSHANT MATT Attending Physician: Kurt Doll PA-C Comment: Patient Education Medication Information: The exam and treatment you received today in the [facility] Emergency Department were for an urgent problem and are not intended as complete care. It is important for you to follow up with a doctor, nurse practitioner, or physician?s painter assistant for ongoing care. If your symptoms [...] so we can reach you if necessary. [facility] Emergency Department has provided you with a complete list of medications post discharge. Please inform your noise abatement engineer/provider of your visit and for further instruction on these medications. Any specific questions regarding your chronic medications and dosages should be discussed with your primary care physician(s) and/or pharmacist. Visit Information Visit Diagnosis: Diagnoses This Visit Medical screening exam ([id number]) If you received any narcotics, sedation, or [...] for Disease Control and Prevention October 2013 [facility] Urgent Care Note- Provideron 12-01-2020 Urgent Care [...] list: No qualifying data available . Normal [facility] Urgent Care [place] 021 Urgent Care Record [facility] ? Urgent Care [address] [place] [address] PATIENT DISCHARGE INSTRUCTIONS Patient Information Name: CANDELARIA SOLIS Age: 30 Years Date of : 1990 Reason For Visit: Medical screening exam; [facility] Arrival Time: 12/01/2020 14:25:19 Primary Care Physician: SUSHANT MATT Attending Physician: Kurt Doll PA-C Comment: Visit Diagnosis: Diagnoses This Visit Medical screening exam ([id number]) If you received any narcotics, sedation, or [...] and treatment you received today in the [place] [facility] were for an urgent problem and are not intended as complete care. It is important for you to follow up with a doctor, nurse practitioner, or physician?s painter assistant for ongoing care. If your symptoms [...] so we can reach you if necessary. [facility] Urgent Care has provided you with a complete list of medications post discharge. Please inform your noise abatement engineer/provider of your visit and for further instruction [...] Disease Control and Prevention October 2013 Normal [facility] Encounters Encounter Date Encounter Type Care Provider Facility Start: 02-01-2022 End: 02-01-2022 ambulatory Sushant Matt Facility: Start: 02-01-2022 End: 02-01-2022 ambulatory MD Sushant Matt Work Phone: [facility] Work Phone: Start: 02-01-2022 End: 02-01-2022 Patient encounter procedure MD Sushant Matt Work Phone: [facility] [place] Start: 09-15-2021 End: 09-16-2021 ambulatory MARY REDDY Facility:H1 Payers Date Payer Category Payer Self-pay 1990 Unknown [id number] 1960 Unknown [id number] Unknown [id number] Social History Date Type Detail Facility Tobacco smoking stat [facility] Unknown if ever smoked [facility] Work Phone: Start: 1990 Sex Assigned At Male F [facility] Clinical Note 02-01-2022 Note Date & Type Note Facility 02-01-2022 Note Sperm Rapid Progressive February 01, 2022 10:11am 38 % Clinical Note 02-01-2022 Note Date & Type Note Facility 02-01-2022 Note Sperm Non-Progressive February 01, 2022 10:11am 20 % History and physical note 12-09-2020 Note Date & Type Note Facility 12-09-2020 Note [id number] FF [facility] Clinical Note 12-01-2020 Note Date & Type Note Facility 12-01-2020 Note Patient Education Materials Foll ows: [facility] Evaluation note Note Date & Type Note Facility Evaluation note No assessment information availa ble [facility] Work Phone: Summary Purpose Family [...] section and content) DATE CREATED AUTHOR 12/10/2020 [facility] DATE CREATED AUTHOR AUTHOR'S ORGANIZ ATION 09/22/2021 [facility] DATE CREATED AUTHOR AUTHOR'S ORGANIZ ATION 02/17/2022 [facility] Care Teams (unrecognized sec tion and [...] BE BASED ON THE PRIMARY CLINICAL RECORDS. [facility] [employer] [facility]. provides no warranty or guarantee of the accuracy or completeness of information in this document.
[2024-11-07 07:14] LABS: Hematocrit 46.7 % (42.0-54.0); Hemoglobin 15.5 g/dL (14.0-18.0); Immature Granulocytes Abs Auto 0.01 10^3/uL (0.00-0.03); Immature Granulocytes Pct Auto 0.1 % (0.0-0.5); Lymphocytes Absolute Auto 3.0 10^3/uL (1.2-3.8); Mean Corpuscular HGB Conc 33.2 g/dL (29.9-35.2); Mean Corpuscular Hemoglobin 26.9 pg (25.9-34.0); Mean Corpuscular Volume 81.1 fL (80.0-94.0); Platelet Count 230 10^3/uL (150-450); Red Blood Count 5.76 10^6/uL (4.70-6.10); White Blood Count 7.7 10^3/uL (4.0-11.0)
[2024-11-07 07:29] LABS: Alanine Aminotransferase 61 U/L (16-63); Albumin Globulin Ratio 1.1; Albumin Level 4.0 g/dL (3.4-5.0); Alkaline Phosphatase 62 U/L (46-116); Anion Gap 12.9; Aspartate Amino Transferase 23 U/L (15-37); Blood Urea Nitrogen 11.0 mg/dL (7.0-18.0); Calcium 8.9 mg/dL (8.5-10.1); Carbon Dioxide 27.4 mmol/L (21.0-32.0); Chloride 105 mmol/L (98-107); Cholesterol 186 mg/dL (<=200); Estimated GFR (African America >60 (>=60 mL/min/1.73m^2); Estimated GFR (Non-African Ame >60 (>=60 mL/min/1.73m^2); Globulin 3.6 g/dL; Glucose 104 mg/dL (74-106); HDL Cholesterol 41 mg/dL (40-60); Potassium 4.3 mmol/L (3.5-5.1); Sodium 141 mmol/L (136-145); Total Protein 7.6 g/dL (6.4-8.2); Triglycerides 110 mg/dL (<=150); VLDL CHOLESTEROL 22.0 mg/dL
== END 2024-11-07 06:51 | disposition home or self-care (01) ==
LOC: LAB 06:51
PROVIDERS: PCP Family Medicine; Visit Provider Family Medicine
DX: Z00.00 Encounter for general adult medical examination without abnormal findings (principal)
CPT/HCPCS: 36415; 80053; 80061; 83036; 85025

== ENCOUNTER 2024-11-20 07:02 | Outpatient (OUT) | payer BC, SELFPAY ==
--- OUTSIDE RECORDS SUMMARY | 2024-11-20 07:04 | XMS_ITS | CCD ---
Author Organization [facility] Care Team Providers Care Director Of Instructional Technology Name Role Phone MARY REDDY Consulting Unavailable [...] Walker on 02-01-2022 Semen Analysis Comment . [facility] Comment on above: No Abnormal specimen characteristics noted. Semen Appearance Normal Normal [facility] Semen pH 8.0 7.2-10 [facility] Semen Round Cell Concentration Moderate [facility] Semen WBC Concentration <1.0 M/mL <0.9 F [facility] Sperm % Non-Motile 42 % [facility] Sperm Motility Total 58.0 % >40 [facility] Qualitative semen viscosityO rdered By: Melvin Walker on 02-01-2022 Viscosity Ql (Keira) Normal Normal [facility] Semen Analysis, Fertilityon 12-08-2022 Debris/Round Cells Moderate Normal [facility] Comment on above: Order Comment: Metho d of Collection:: Masturbation Has the patient had a vasectomy?: N Type of Specimen Container:: Sterile Container Abstinence Period:: 5 DAYS Kept at body temperature?: Y Any Collection or Transport Problems?: NO Performed By: #### S EMCOMP #### [facility] [address] [place] [address] [place] Immotile Sperm 42 % Normal [facility] Comment on above: Order Comment: Metho d of Collection:: Masturbation Has the patient had a vasectomy?: N Type of Specimen Container:: Sterile Container Abstinence Period:: 5 DAYS Kept at body temperature?: Y Any Collection or Transport Problems?: NO Performed By: #### S EMCOMP #### [facility] [address] [place] [address] [place] Non-Progression Sperm Motili 20 % Normal [facility] Comment on above: Order Comment: Metho d of Collection:: Masturbation Has the patient had a vasectomy?: N Type of Specimen Container:: Sterile Container Abstinence Period:: 5 DAYS Kept at body temperature?: Y Any Collection or Transport Problems?: NO Performed By: #### S EMCOMP #### [place] [address] [place] Normal Sperm Morphology 6.0 % Normal >=4.0 F [facility] Comment on above: Order Comment: Metho d of Collection:: Masturbation Has the patient had a vasectomy?: N Type of Specimen Container:: Sterile Container Abstinence Period:: 5 DAYS Kept at body temperature?: Y Any Collection or Transport Problems?: NO Performed By: #### S EMCOMP #### [facility] [address] [place] [address] [place] Rapid Progression Sperm Motili 38 % Normal [facility] Comment on above: Order Comment: Metho d of Collection:: Masturbation Has the patient had a vasectomy?: N Type of Specimen Container:: Sterile Container Abstinence Period:: 5 DAYS Kept at body temperature?: Y Any Collection or Transport Problems?: NO Performed By: #### S EMCOMP #### [facility] [address] Semen Appearance Normal Normal Normal [facility] Comment on above: Order Comment: Metho d of Collection:: Masturbation Has the patient had a vasectomy?: N Type of Specimen Container:: Sterile Container Abstinence Period:: 5 DAYS Kept at body temperature?: Y Any Collection or Transport Problems?: NO Performed By: #### S EMCOMP #### [facility] [address] [place] [address] Semen Comment . Normal [facility] Comment on above: Order Comment: Metho d of Collection:: Masturbation Has the patient had a vasectomy?: N Type of Specimen Container:: Sterile Container Abstinence Period:: 5 DAYS Kept at body temperature?: Y Any Collection or Transport Problems?: NO Result Comment: No A bnormal specimen characteristics noted. PERFORMED BY: [place] [address] PATHOLOGIST LEGAL RESEARCHER SHAWNA DE LA ROSA M.D. Performed By: #### S EMCOMP #### [address] Semen Liquefaction Normal Normal <=60 min [facility] Comment on above: Order Comment: Metho d of Collection:: Masturbation Has the patient had a vasectomy?: N Type of Specimen Container:: Sterile Container Abstinence Period:: 5 DAYS Kept at body temperature?: Y Any Collection or Transport Problems?: NO Performed By: #### S EMCOMP #### [address] Semen pH 8.0 Normal >=7.2 [facility] Comment on above: Order Comment: Metho d of Collection:: Masturbation Has the patient had a vasectomy?: N Type of Specimen Container:: Sterile Container Abstinence Period:: 5 DAYS Kept at body temperature?: Y Any Collection or Transport Problems?: NO Performed By: #### S EMCOMP #### [facility] [address] [place] [address] Semen Viscosity Normal Normal Normal [facility] Comment on above: Order Comment: Metho d of Collection:: Masturbation Has the patient had a vasectomy?: N Type of Specimen Container:: Sterile Container Abstinence Period:: 5 DAYS Kept at body temperature?: Y Any Collection or Transport Problems?: NO Performed By: #### S EMCOMP #### [facility] [address] Semen Volume 3.0 mL Normal >=1.5 [facility] Comment on above: Order Comment: Metho d of Collection:: Masturbation Has the patient had a vasectomy?: N Type of Specimen Container:: Sterile Container Abstinence Period:: 5 DAYS Kept at body temperature?: Y Any Collection or Transport Problems?: NO Performed By: #### S EMCOMP #### [address] Sperm Concentration 14.6 Low >=15 [facility] Comment on above: Order Comment: Metho d of Collection:: Masturbation Has the patient had a vasectomy?: N Type of Specimen Container:: Sterile Container Abstinence Period:: 5 DAYS Kept at body temperature?: Y Any Collection or Transport Problems?: NO Performed By: #### S EMCOMP #### [address] Total Motility ([place]+PARTS PROCESSOR) 58.0 % Normal >=40 ([place]+PARTS PROCESSOR) [facility] Comment on above: Order Comment: Metho d of Collection:: Masturbation Has the patient had a vasectomy?: N Type of Specimen Container:: Sterile Container Abstinence Period:: 5 DAYS Kept at body temperature?: Y Any Collection or Transport Problems?: NO Performed By: #### S EMCOMP #### [facility] [address] [place] [address] [place] WBC Concent, Semen <1.0 Normal <1.0 [facility] Comment on above: Order Comment: Metho d of Collection:: Masturbation Has the patient had a vasectomy?: N Type of Specimen Container:: Sterile Container Abstinence Period:: 5 DAYS Kept at body temperature?: Y Any Collection or Transport Problems?: NO Performed By: #### S EMCOMP #### [facility] [address] Semen liquefaction time maria esther urementOrdered By: Mevlin Walker on 02-01-2022 Liquefaction (Keira) [Time] Normal <=60 min [facility] Semen volumeOrdered By: Ratna Walker on 02-01-2022 Specimen volume (Keira) 3.0 mL >1.5 [facility] Sperm countOrdered By: Melvin Walker on 02-01-2022 Spermatozoa (Keira) [#/Vol] 14.6 M/mL >15 [facility] Sperm morphologyOrdered By: Melvin Walker on 02-01-2022 Spermatozoa Nom (Keira) 6.0 % >4.[address] [facility] [address] ABD/PELV W CONon 09-17-19 CT ABD/PELV [...] MARIVEL SAID Date: 2021-09-15 23:36 Normal [facility] CBC AUTO DIFFon 09-15-2021 BASO # 0.2 103/ul Critically high 0.0-0.1 [facility] Comment on above: Performed By: #### C BC #### [facility] [address] [address] [address] Tye Agosto Basophils/100 WBC (Bld) 1.9 % Normal 0.2-2.0 [facility] Comment on above: Performed By: #### C BC #### [facility] [address] [place] [address] Dr. Tye Agosto EO # 0.6 103/ul Normal 0.0-0.7 [facility] Comment on above: Performed By: #### C BC #### [facility] [address] [place] [address] Dr. Tye Agosto Eosinophils/100 WBC (Bld) 6.2 % Normal 0.9-7.0 [facility] Comment on above: Performed By: #### C BC #### [facility] [address] [place] [address] Dr. Tye Agosto Erythrocyte distribution width (RBC) [Ratio] 13.2 % Normal 11.0-15.0 [facility] Comment on above: Performed By: #### C BC #### [facility] [address] [place] [address] Dr. Tye Agosto Hematocrit (Bld) [Volume fraction] 44.7 % Normal 42.0-54.0 [facility] Comment on above: Performed By: #### C BC #### [facility] [address] [place] [address] Dr. Tye Agosto Hemoglobin (Bld) [Mass/Vol] 14.8 g/dL Normal 14.0-18.0 [facility] Comment on above: Performed By: #### C BC #### [facility] [address] [place] [address] Dr. Tye Agosto IG # 0.03 10e3/ul Normal 0.00-0.03 [facility] Comment on above: Performed By: #### C BC #### [facility] [address] [place] [address] Dr. Tye Agosto IG % 0.3 % Normal 0.0-0.5 [facility] Comment on above: Performed By: #### C BC #### [facility] [address] [place] [address] Dr. Tye Agosto LYMPH # 3.4 103/ul Normal 1.2-3.8 [facility] Comment on above: Performed By: #### C BC #### [facility] [address] [place] [address] Dr. Tye Agosto Lymphocytes/100 WBC (Bld) 33.5 % Normal 20.5-60.0 [facility] Comment on above: Performed By: #### C BC #### [facility] [address] [place] [address] Dr. Tye Agsoto MANUAL DIFF REQ NO Normal [facility] Comment on above: Performed By: #### C BC #### [facility] [address] [place] [address] Dr. Tye Agosto MCH (RBC) [Entitic mass] 27.0 pg Normal 25.9-34.0 [facility] Comment on above: Performed By: #### C BC #### [facility] [address] [place] [address] Dr. Tye Agosto MCHC (RBC) [Mass/Vol] 33.1 g/dL Normal 29.9-35.2 [facility] Comment on above: Performed By: #### C BC #### [facility] [address] [place] [address] Dr. Tye Agosto MCV (RBC) [Entitic vol] 81.4 fL Normal 80.0-94.0 [facility] Comment on above: Performed By: #### C BC #### [facility] [address] [place] [address] Dr. Tye Agosto MONO # 0.6 103/ul Normal 0.3-0.8 [facility] Comment on above: Performed By: #### C BC #### [facility] [address] [place] [address] Dr. Tye Agosto Monocytes/100 WBC (Bld) 5.5 % Normal 1.7-12.0 [facility] Comment on above: Performed By: #### C BC #### [facility] [address] [place] [address] Dr. Tye Agosto NEUT # 5.4 103/ul Normal 1.4-6.5 [facility] Comment on above: Performed By: #### C BC #### [facility] [address] [address] [address] Tye Agosto Neutrophils/100 WBC (Bld) 52.6 % Normal 43.0-75.0 [facility] Comment on above: Performed By: #### C BC #### [facility] [address] [address] [address] Tye Agosto Platelet mean volume (Bld) [Entitic vol] 10.5 fL Normal 9.5-13.5 [facility] Comment on above: Performed By: #### C BC #### [facility] [address] [address] [address] Tye Agosto PLT 233 103/ul Normal 150-450 [facility] Comment on above: Performed By: #### C BC #### [facility] [address] [place] [address] Dr. Tye Agosto RBC 5.49 106/ul Normal 4.70-6.10 [facility] Comment on above: Performed By: #### C BC #### [facility] [address] [place] [address] Dr. Tye Agosto WBC 10.2 103/ul Normal 4.0-11.0 [facility] Comment on above: Performed By: #### C BC #### [facility] [address] [place] [address] Dr. Tye Agosto PROF CHEM 8 (BAS METB)on Anion gap [Moles/Vol] 11.4 mmol/L Normal [facility] Comment on above: Performed By: #### B MP #### [facility] [address] [place] [address] Dr. Tye Agosto Calcium [Mass/Vol] 9.3 mg/dL Normal 8.5-10.1 [facility] Comment on above: Performed By: #### B MP #### [facility] [address] [place] [address] Dr. Tye Agosto Chloride [Moles/Vol] 103 mmol/L Normal 98-107 [facility] Comment on above: Performed By: #### B MP #### [facility] [address] [address] [address] Tye Agosto CO2 [Moles/Vol] 27.1 mmol/L Normal 21.0-32.0 [facility] Comment on above: Performed By: #### B MP #### [facility] [address] [address] [address] Tye Agosto Creatinine [Mass/Vol] 1.25 mg/dL Normal 0.70-1.30 [facility] Comment on above: Performed By: #### B MP #### [facility] [address] [address] [address] Tye Agosto EGFR-AF TAIWANESE >60 Normal >=60 [facility] Comment on above: Performed By: #### B MP #### [facility] [address] [place] [address] Dr. Tye Agosto EGFR-NON AF TAIWANESE >60 Normal >=60 [facility] Comment on above: Performed By: #### B MP #### [facility] [address] [address] [address] Tye Agosto Glucose [Mass/Vol] 117 mg/dL Critically high 74-106 [facility] Comment on above: Performed By: #### B MP #### [facility] [address] [address] [address] Tye Agosto Potassium [Moles/Vol] 3.5 mmol/L Normal 3.5-5.1 [facility] Comment on above: Performed By: #### B MP #### [facility] [address] [address] [address] Tye Agosto Sodium [Moles/Vol] 138 mmol/L Normal 136-145 [facility] Comment on above: Performed By: #### B MP #### [facility] [address] [place] [address] Dr. Tye Agosto Urea nitrogen [Mass/Vol] 12.0 mg/dL Normal 7.0-18.0 [facility] Comment on above: Performed By: #### B MP #### [facility] [address] [place] [address] Dr. Tye Agosto Urea nitrogen/Creatinine [Mass ratio] 9.6 mg/mg Normal [facility] Comment on above: Performed By: #### B #### [facility] [address] [place], [place] [address] Dr. Tye Agosto Consent Formson 12-09-2020 Consent Forms [id number] #1.00OTGTIFF Normal [facility] - Toxicology Resultson 1 Lab - Toxicology Results [id number] #1.00OTGTIFF [facility] Triage Panel 10on 12-02-2020 Drug Screen Complete Collected Normal [facility] Comment on above: Performed By: #### 2 [id number] #### [facility] (DEFAULT) [address] [place] [address] ED Clinical Summaryon 2020 ED Clinical Summary [facility] [address] [place], [place] [id number] Clinical Summary PERSON INFORMATION Name: CANDELARIA SOLIS Age: 30 Years Sex: MALE : 1990 MRN: Acct#: Visit Reason: Medical screening exam; [facility] Arrival: 12/01/2020 14:25:19 Discharge: 12/01/2020 14:58:00 LOS: 000 00:33 Check In: 12/01/2020 14:25:19 Checkout: 12/01/2020 14:58:00 Address: [address] [place] [address] PCP: SUSHANT MATT PROVIDER INFORMATION Provider Role Assigned Unassigned Juan Amador PA-C ED PA 12/01/2020 14:29:42 12/01/2020 14:30:19 Kurt Doll PA-C ED PA 12/01/2020 14:29:53 Janell Crowley LEASING MACHINE TENDER Nurse 12/01/2020 14:33:53 VITALS INFORMATION Vital Sign [...] verbalizes understanding of instructions given Comment: Normal [facility] ED Patient Summaryon 021 ED Patient Summary [facility] [address] [place] [address] PATIENT DISCHARGE INSTRUCTIONS Patient Information Name: CANDELARIA SOLIS Age: 30 Years Date of : 1990 Reason For Visit: [facility] Time: 12/01/2020 14:25:19 Primary Care Physician: SUSHANT MATT Attending Physician: Kurt Doll PA-C Comment: Patient Education Medication Information: The exam and treatment you received today in the [facility] Emergency Department were for an urgent problem and are not intended as complete care. It is important for you to follow up with a doctor, nurse practitioner, or physician?s assistant infant toddler teacher for ongoing care. If your symptoms become [...] so we can reach you if necessary. [facility] Emergency Department has provided you with a complete list of medications post discharge. Please inform your operator engineer/provider of your visit and for further instruction on these medications. Any specific questions regarding your chronic medications and dosages should be discussed with your primary care physician(s) and/or pharmacist. Visit Information Visit Diagnosis: Diagnoses This Visit Medical screening exam ([id number]) If you received any narcotics, sedation, or [...] for Disease Control and Prevention October 2013 [facility] Urgent Care Note- Provideron 12-01-2020 Urgent Care [...] list: No qualifying data available . Normal [facility] Recordon 021 Urgent Care Record [facility] Ur[facility] Care [address] [place] [address] PATIENT DISCHARGE INSTRUCTIONS Patient Information Name: CANDELARIA SOLIS Age: 30 Years Date of : 1990 Reason For Visit: Medical screening exam; [facility] Arrival Time: 12/01/2020 14:25:19 Primary Care Physician: SUSHANT MATT Attending Physician: Kurt Doll PA-C Comment: Visit Diagnosis: Diagnoses This Visit Medical screening exam ([id number]) If you received any narcotics, sedation, or [...] and treatment you received today in the [facility] Care were for an urgent problem and are not intended as complete care. It is important for you to follow up with a doctor, nurse practitioner, or physician?s assistant infant toddler teacher for ongoing care. If your symptoms become [...] so we can reach you if necessary. [facility] has provided you with a complete list of medications post discharge. Please inform your operator engineer/provider of your visit and for further [...] Disease Control and Prevention October 2013 Normal [facility] Encounters Encounter Date Encounter Type Care Provider Facility Start: 02-01-2022 End: 02-01-2022 ambulatory Sushant aMtt Facility:[facility] Start: 02-01-2022 End: 02-01-2022 ambulatory MD Sushant Matt Work Phone: [facility] Work Phone: Start: 02-01-2022 End: 02-01-2022 Patient encounter procedure MD Sushant Matt Work Phone: [facility] Start: 09-15-2021 End: 09-16-2021 ambulatory MARY REDDY Facility:[facility]1 Payers Date Payer Category Payer Self-pay 1990 Unknown [id number] 1960 Unknown [id number] Unknown [id number] Social History Date Type Detail Facility Tobacco smoking stat [facility] Unknown if ever smoked [facility] Work Phone: Start: 1990 Sex Assigned At Male F [facility] Clinical Note 02-01-2022 Note Date & Type Note Facility 02-01-2022 Note [facility] Sperm Rapid Progressive February 01, 2022 10:11am 38 % Clinical Note 02-01-2022 Note Date & Type Note Facility 02-01-2022 Note [facility] Sperm Non-Progressive February 01, 2022 10:11am 20 % History and physical note 12-09-2020 Note Date & Type Note Facility 12-09-2020 Note [id number]#1.00OTGTI [facility] Clinical Note 12-01-2020 Note Date & Type Note Facility 12-01-2020 Note Patient Education Materials Foll ows: [facility] Evaluation note Note Date & Type Note Facility Evaluation note No assessment information availa ble [facility] Work Phone: Summary Purpose Family History [...] section and content) DATE CREATED AUTHOR 12/10/2020 [facility] DATE CREATED AUTHOR AUTHOR'S ORGANIZ ATION 09/22/2021 [facility] DATE CREATED AUTHOR AUTHOR'S ORGANIZ ATION 02/17/2022 [facility] Care Teams (unrecognized sec tion and content) [...] BE BASED ON THE PRIMARY CLINICAL RECORDS. [facility]. provides no warranty or guarantee of the accuracy or completeness of information in this document.
--- OUTSIDE RECORDS SUMMARY | 2024-11-20 07:05 | XMS_ITS | Patient Health Record ---
Author Organization [facility] in [place] Address [address] [place] [address] Care Team Providers Care Hotel Custodian Name Role Phone Live Matt Primary Care Provider Allergies No Known Allergies Results Component Value Reference Range Notes CBC AUTO DIFF Reviewed date:11/08/2024 01:16:15 PM Interpretation: Performing Lab: Notes/Report: [facility] , White Blood Count 7.7 4.0-11.0 10 3/uL Red Blood Count 5.76 4.70-6.10 10 6/uL Hemoglobin 15.5 14.0-18.0 g/dL Hematocrit 46.7 42.0-54.0 % Mean Corpuscular Volume 81.1 80.0-94.0 fL Mean Corpuscular Hemoglobin 26.9 25.9-34.0 pg Mean Corpuscular HGB Conc 33.2 29.9-35.2 g/dL Red Cell Distribution Width 13.9 11.0-15.0 % Platelet Count 230 150-450 10 3/uL Mean Platelet Volume 10.4 9.5-13.5 fL Neutrophils Percent Auto 41.8 43.0-75.0 % Lymphocytes Percent Auto 39.2 20.5-60.0 % Monocytes Percent Auto 6.7 1.7-12.0 % Eosinophils Percent Auto 9.7 0.9-7.0 % Basophils Percent Auto 2.5 0.2-2.0 % Immature Granulocytes Pct Auto 0.1 0.0-0.5 % Neutrophils Absolute Auto 3.2 1.4-6.5 10 3/uL Lymphocytes Absolute Auto 3.0 1.2-3.8 10 3/uL Monocytes Absolute Auto 0.5 0.3-0.8 10 3/uL Eosinophils Absolute Auto 0.8 0.0-0.7 10 3/uL Basophils Absolute Auto 0.2 0.0-0.1 10 3/uL Immature Granulocytes Abs Auto 0.01 0.00-0.03 10 3/uL Performing Lab: see note ML - [facility] GLYCOHEMOGLOBIN A1C Reviewed date:11/08/2024 01:16:15 PM Interpretation: Performing Lab: Notes/Report: [facility] , Glycohemoglobin A1C 5.7 4.5-6.2 % > 7.0 ACTION SUGGESTED ADA THERAPEUTIC TARGET < 7.0 ADA RECOMMENDED LIMIT 4.0 - 6.0 Estimated Average Glucose 117 Performing Lab: see note ML - [facility] LIPID PROFILE Reviewed date:11/08/2024 01:16:15 PM Interpretation: Performing Lab: Notes/Report: [facility] , Triglycerides 110 <=150 mg/dL Cholesterol 186 <=200 mg/dL HDL Cholesterol 41 40-60 mg/dL <40 mg/dl - HIGH CARDIOVASCULAR RISK > or =60 mg/dl - LOW CARDIOVASCULAR RISK LDL Cholesterol Calculated 123.0 130-159 mg/dl BORDERLINE HIGH 100-129 mg/dl NEAR OR ABOVE OPTIMAL <100 mg/dl OPTIMAL 160-189 mg/dl HIGH >190 mg/dl VERY HIGH VLDL CHOLESTEROL 22.0 Chol HDL Ratio 4.5 7.1 - 11.0 MODERATE RISK 4.4 - 7.1 AVERAGE RISK >11.0 HIGH RISK 3.3 - 4.4 LOW RISK Performing Lab: see note ML - [facility] LB PROF 14(COMP METB) Reviewed date:11/08/2024 01:16:15 PM Interpretation: Performing Lab: Notes/Report: [facility] , Sodium 141 136-145 mmol/L Potassium 4.3 3.5-5.1 mmol/L Chloride 105 98-107 mmol/L Carbon Dioxide 27.4 21.0-32.0 mmol/L Anion Gap 12.9 Glucose 104 74-106 mg/dL Blood Urea Nitrogen 11.0 7.0-18.0 mg/dL Creatinine 0.95 0.70-1.30 mg/dL Estimated GFR ( Carisa >60 >=60 mL/min/1.73m 2 Estimated GFR (Non- Joanie >60 >=60 mL/min/1.73m 2 BUN Creatinine Ratio 11.6 Calcium 8.9 8.5-10.1 mg/dL Bilirubin Total 0.4 0.2-1.0 mg/dL Aspartate Amino Transferase 23 15-37 U/L Alanine Aminotransferase 61 16-63 U/L Alkaline Phosphatase 62 46-116 U/L Total Protein 7.6 6.4-8.2 g/dL Albumin Level 4.0 3.4-5.0 g/dL Globulin 3.6 Albumin Globulin Ratio 1.1 Performing Lab: see note ML - [facility] LB XR cervical spine 2-3V Reviewed date:11/05/2024 07:48:51 PM Interpretation: Performing Lab: Notes/Report: Source Facility: [place] [address] XRay Report Signed Patient: CANDELARIA SOLIS MR#: [id number] : 1990 Acct:[id number] Age/Sex: 34 / M ADM Date: 11/05/24 Loc: RAD Attending Dr: Sherif Matt M.D. Ordering Physician: Sherif Matt M.D. Date of Service: 11/05/24 Procedure(s): XR cervical spine 2-3V Accession Number(s): [id number] cc: Sherif Matt M.D. [place] [address] Patient Name: CANDELARIA SOLIS MRN: [id number] date: 1990 Sex: M Assigned Patient Location: [facility] Current Patient Location: RAD Accession/Order Number: [id number] Exam Date: 11/05/2024 14:15 Report Date: 11/05/2024 15:02 At the request of: SHERIF MATT MD Procedure: XR cervical spine 2-3V CERVICAL SPINE 3 views: CLINICAL HISTORY: Cervical Radiculopathy COMPARISON: None FINDINGS: Vertebral body and disc space heights appear maintained. Facet joints appear unremarkable. No prevertebral soft tissue swelling. XR/XR cervical spine 2-3V IMPRESSION: NO ACUTE BONY PROCESS. Impression dictated by: Tejas Friend Jr., D.O. 11/05/2024 3:02 PM Dictation Location: [place] [address] Electronically authenticated by: [id number] Y Date: 11/05/2024 15:02 Dictated By: Tejas Friend M.D. Signed By: 11/05/24 1505 DD/ 150 TD/TT: Records Administrator: Reason For Referral No Information Medications Medication SIG (Take, Route, Frequency, Duration) Notes Start Date End Date Status Albuterol Sulfate HFA 108 (90 Base) MCG/ACT INHALE 2 PUFFS NEEDED EVERY 4 HOURS; Duration: 17 Active tiZANidine HCl 4 MG 2 tablets Orally at bedtime; Duration: 15 PRN 05/30/2023 Active Diclofenac Sodium 75 MG 1 tablet as need ed Orally Twice a day PRN 05/30/2023 Active Azithromycin 250 MG 2 tabs today then 1 tab Orally daily; Duration: 5 days 06/19/2024 Active Social History Tobacco Use: Social History Observation Description Date Details (start date - stop date) Never Smoker NA - NA Tobacco Use/Smoking Question Answer Notes Patient is a nonsmoker Alcohol Screen (Audit-C) Question Answer Notes Did you have a drink containing alcohol in the p ast year? No Points 0 Interpretation Negative Tobacco use other than smoking: Question Answer Notes Are you an other tobacco user? Yes c hewing tobacco AUDIT-C (Standard) Question Answer Notes Did you have a drink containing alcohol in the p ast year? No Points 0 Interpretation Negative Problems Problem Type SNOMED Code ICD Code Onset Dates Problem Status W/U Status Risk Notes Problem Asthma (518150834) Asthma (J45.909) Active confirmed Problem Cervical radiculopathy (92726362) Cervical radiculopathy (M54.12) Active confirmed Problem Well adult (008134184) Well adult (Z00.00) Active confirmed Problem Conjunctivitis (5073983) Conjunctivitis (H10.9) Active confirmed Problem Spasm (59654517) Trapezius muscl e spasm (M62.838) Active confirmed Vital Signs Temperature 98.2 degrees Fahrenheit 06/19/2024 Blood pressure diastolic 82 mm Hg 11/05/2024 Height 67 in 11/05/2024 Blood pressure systolic 128 mm Hg 11/05/2024 Weight 220.4 lbs 11/05/2024 BMI 34.52 kg/m2 11/05/2024 Encounters Encounter Location Date Provider Diagnosis [facility] [address] [place] [address] 11/05/2024 Live Matt [facility] [address] [place] [address] 11/08/2024 Live Matt [facility] [address] [place] [address] 06/19/2024 Live Matt Acute bronchitis, unspecified organism J20.9 [facility] [address] [place] [address] 11/05/2024 Live Matt Well adult Z00.00 an d Cervical radiculopathy M54.12 Assessments Encounter Date Diagnosis (ICD Code) Assessment Notes Treatment Notes Treatment Clinical Notes Section Notes 06/19/2024 Acute bronchitis, unspecified organism (ICD-10 - J20.9) Rest and drink more liquids, especially water. You may use a humidifier or vaporizer to help keep the drainage moist. Envw-kvz-zhbzssf Nasal Saline may help the stuffy and runny nose. Use Ibuprofen and or Tylenol as needed for fever, chills, body aches or pain. Children 5 years old should not be given tnwj-xzs-klogfjn cough and cold medications such as guaifenesin and dextromethorphan. If you're over age 5, you may try yaib-pqe-kvdzruf cold medications such as guaifenesin and dextromethorphan, or multi-symptom cold reliever such as Dayquil to help reduce the symptoms. Antibiotics have been prescribed. You should take these until completed and follow the directions. Antibiotics can sometimes cause upset stomach, and in rare cases, serious allergic reactions or serious gastrointestinal problems. If you start having severe abdominal pain, severe vomiting, or bloody diarrhea, you should be reevaluated by your physician or urgent care immediately. Follow up with your Primary Care Provider or return to clinic if symptoms do not improve within 3-5 days. If you develop severe symptoms such as shortness of breath, repeated vomiting, coughing up blood, or chest pain you should go to the emergency room or call 911 11/05/2024 Well adult (ICD-10 - Z00.00) 11/05/2024 Cervical radiculopathy (ICD-10 - M54.12) Plan Of Treatment Pending Test Test Name Order Date CMP (COMPLETE METABOLIC PANEL) 3 CMP (COMPLETE METABOLIC PANEL) 4 HEMOGLOBIN A1C (GLYCO) 11/05/2024 HEMOGLOBIN A1C (GLYCO) 12/03/2022 HEMOGLOBIN A1C (GLYCO) 11/04/2023 INSULIN, TOTAL 12/03/2022 INSULIN, TOTAL 11/04/2023 LIPID PANEL (CHOL/TRIG/HDL/LDL) 11/06/19 25 LIPID PANEL (CHOL/TRIG/HDL/LDL) 12/04/19 23 LIPID PANEL (CHOL/TRIG/HDL/LDL) 11/04/19 24 CBC WITH DIFF 11/04/2023 CBC WITH DIFF 12/03/2022 MRI CSPINE WO CON 11/05/2024 THYROID PANEL (T4/TSH/FREE T3) 4 THYROID PANEL (T4/TSH/FREE T3) 3 CMP (COMP MET BRUNO) w/eGFR CKD-EPI 2024 CBC WITH DIFF 11/05/2024 Insurance Providers Payer Name Payer Address Payer Phone Subscriber Number Group Number Insured Name Patient Relationship to Insured Coverage Start Date Coverage End Date [employer] PPO PLUS LOCAL PLAN [address] [place] [phone] [id number] Candelaria Solis Self - patient is the insured 4 Medical (General) History Medical History History ICD Code Asthma J45.909 Well adult Z00.00
--- NOTE | 2024-11-20 07:11 | MR_ITS ---
The [place] [id number] Patient Name: CANDELARIA GOMEZ MRN: [id number] date: 1990 Sex: M Assigned Patient Location: MRI Current Patient Location: MRI Accession/Order Number: [id number] Exam Date: 11/20/2024 07:46 Report Date: 11/20/2024 08:39 At the request of: SUSHANT MATT MD Procedure: MR cervical spine wo con EXAMINATION: MRI OF THE CERVICAL SPINE WITHOUT CONTRAST CLINICAL DATA: Chronic neck pain with radiation to both upper extremities COMPARISON: Plain films 11/05/2024 TECHNIQUE: Multiecho imaging was performed in the sagittal and axial plane without contrast administration. FINDINGS: There is subtle levoscoliotic curvature. Alignment is maintained on the sagittal images. There is normal signal intensity within the imaged bone marrow. No compression fractures are seen. There are low-lying cerebellar tonsils. The cord, as visualized is normal in caliber and signal intensity throughout its imaged course. Left maxillary mucus retention cysts are incidentally noted. Shotty cervical lymph nodes are seen. The cervical discs are normal in height and signal. There is no significant disc bulge or herniation at any of the imaged levels. There is no central stenosis or neuroforaminal narrowing. MR/MR cervical spine wo con IMPRESSION: NO DISC DISEASE OR STENOSIS. Impression dictated by: Jennifer Soto M.D. 11/20/2024 8:39 AM Dictation Location: [place] [address] Electronically authenticated by: [id number] Y Date: 11/20/2024 08:39
== END 2024-11-20 07:03 | disposition home or self-care (01) ==
LOC: MRI 07:02
PROVIDERS: PCP Family Medicine; Visit Provider Family Medicine
DX: M54.12 Radiculopathy, cervical region (principal); M48.02 Spinal stenosis, cervical region
CPT/HCPCS: 72141

== ENCOUNTER 2024-12-09 08:39 | Outpatient (RCR) | payer BC, SELFPAY | END 2024-12-12 09:13 | disposition home or self-care (01) | LOC: PT 08:39 | PROVIDERS: PCP Family Medicine; Visit Provider Family Medicine | DX: M54.12 Radiculopathy, cervical region (principal) | CPT/HCPCS: 97012; 97110; 97140; 97162 ==